=== PATIENT | female | born 1985 | race Caucasian/White ===

== ENCOUNTER 2020-02-01 13:30 | Emergency (ER) | payer MEDICAID, SELFPAY ==
--- NOTE | 2020-02-01 13:39 | ED.URI ---
HPI - URI/Sore Throat General Chief Complaint: Upper Respiratory Infection Stated Complaint: sore throat Time Seen by Provider: 02/01/20 13:39 Source: patient and RN notes reviewed Mode of arrival: ambulatory Limitations: no limitations History of Present Illness HPI Narrative: 34-year-old female presents concern for 2-week history of sore throat. She also reports rhinorrhea, nasal congestion. Reports her daughter has tested positive for strep throat. Reports family members have tested negative for COVID. She denies fever, cough, shortness of breath. Reports intermittent malaise. MD elicited complaint: sore throat Related Data Home Medications Medication Instructions Recorded Confirmed albuterol 02/01/20 Allergies Allergy/AdvReac Type Severity Reaction Status Date / Time hydroxychloroquine Allergy Mild Hives / Verified 02/01/20 13:48 Red Face Review of Systems Review of Systems: Narrative: CONSTITUTIONAL: Denies malaise, chills, sweats, or fever. EYES: Denies visual changes, redness, or discharge. ENT: Reports rhinorrhea, congestion, sore throat. Denies sinus pain, otalgia CARDIOVASCULAR: Denies chest pain, palpitations, or edema. RESPIRATORY: Denies cough or dyspnea. GASTROINTESTINAL: Denies abdominal pain, nausea, vomiting, diarrhea SKIN: Denies rash or itching. MUSCULOSKELETAL: Denies myalgia. NEUROLOGIC: Denies headache. All systems reviewed & are unremarkable except as noted in HPI and below PMFSH Social History Social History Smoking status: Never smoker Alcohol intake: never Gender identity (if verbalized by the patient): Female Comments At time of signature, agree with nursing past medical, surgical, social and family history. There is no relevant family history pertinent to the presenting complaint Exam Narrative: Exam Narrative: GENERAL: Well-appearing, well-nourished, and in no acute distress. HEAD: Normocephalic EYES: PERRLA, conjunctivae clear ENT: Nares clear, turbinates erythematous, clear discharge. Mucous membranes moist. TM pearly mobley with sharp light reflex bilaterally; no tragal tenderness. Oropharynx mildly erythematous without lesions. Tonsils not enlarged and without exudate, no drooling, no hoarseness, no trismus, uvula midline. NECK: Supple. No lymphadenopathy CHEST: Clear to auscultation, breath sounds equal. No wheezing, rhonchi, rales, or stridor. No respiratory distress, speaks in full sentences. HEART: Regular rate and rhythm. No murmur heard. SKIN: Warm, dry, no rash. NEURO: Alert and oriented x3. PSYCH: Normal mood and affect Course Course Emergency Course: Patient is aware of diagnosis, understands and agrees to treatment plan. Anticipatory guidance given. Patient agrees to follow-up as directed and is aware of reasons to seek care at the emergency department. Portions of this record may have been created with voice recognition software Vital Signs Vital signs: Vital Signs Temperature 97.4 F L 02/01/20 13:40 Pulse Rate 84 02/01/20 13:40 Respiratory Rate 18 02/01/20 13:40 Blood Pressure 128/87 02/01/20 13:40 Pulse Oximetry 99 02/01/20 13:40 Temperature 97.4 F L 02/01/20 13:40 Pulse Rate 84 02/01/20 13:40 Respiratory Rate 18 02/01/20 13:40 Blood Pressure 128/87 02/01/20 13:40 Pulse Oximetry 99 02/01/20 13:40 Reviewed. MDM - URI/Sore Throat MDM Narrative Medical decision making narrative: Differential diagnosis considered: Krishnan virus, strep pharyngitis, allergic rhinitis, upper respiratory tract infection, sinusitis, rhinosinusitis, nasopharyngitis. viral pharyngitis, otitis media, otitis externa, pneumonia, bronchitis, viral cough syndrome, viral syndrome, and influenza. Exam findings show no acute concerns or changes; patient is non-toxic appearing and is in no distress. Patient is appropriate for outpatient treatment and follow-up. Lab Data Attestation: I reviewed the patient's lab results. Labs: Strep Screen
[2020-02-01 13:40] VITALS: BP 128/87; PULSE 84; RESP 18; TEMP 36.3; O2SAT 99
== END 2020-02-01 14:12 | disposition home or self-care (01) ==
PROVIDERS: Emergency Provider Nurse Practitioner
DX: J02.9 Acute pharyngitis, unspecified (principal); J45.909 Unspecified asthma, uncomplicated
CPT/HCPCS: 87081; 87880; 99213; G0463

== ENCOUNTER 2021-11-17 15:11 | Emergency (ER) | payer OTHER, SELFPAY ==
--- NOTE | 2021-11-17 15:13 | ED.URI ---
HPI - URI/Sore Throat General Chief Complaint: Upper Respiratory Infection Stated Complaint: sore throat headache poss uti Time Seen by Provider: 11/17/21 15:13 Source: patient Mode of arrival: ambulatory Limitations: no limitations History of Present Illness HPI Narrative: Ms. mooney is a 36-year-old female patient presenting to the clinic today with complaints of sore throat, headache, and possible UTI. She reports that she began having the symptoms a few days ago. States that she recently was swimming [place] and thinks that she may have gotten a UTI from this. States that she is also having some white vaginal discharge that is not normal for her. Last intercourse was on Monday and it was a little painful. She reports that the area is somewhat burning and itching at times Related Data Home Medications Medication Instructions Recorded Confirmed albuterol sulfate 90 mcg/actuation 90 mcg inhalation DIRECTED 11/17/21 11/17/21 aerosol inhaler escitalopram oxalate 10 mg tablet 10 mg DIRECTED 11/17/21 11/17/21 omeprazole 40 mg capsule,delayed 40 mg DIRECTED 11/17/21 11/17/21 release Allergies Allergy/AdvReac Type Severity Reaction Status Date / Time hydroxychloroquine Allergy Mild Hives / Verified 02/01/20 13:48 Red Face Review of Systems Review of Systems: Pertinent positives per HPI. Patient denies any fever, chills, rash, visual changes, dizziness, cough, runny nose, shortness of breath, chest pain, palpitations, nausea, vomiting, diarrhea, constipation, abdominal pain, PMFSH Social History Social History Smoking status: Never smoker Alcohol intake: never Gender identity (if verbalized by the patient): Female Comments At the time of my signature, I reviewed and agree with the nursing past medical, surgical, social, and family history. There is no relevant family history pertinent to the patient complaint. Exam Narrative: General: Well-developed, well nourished, in no apparent distress Head: Normocephalic, atraumatic Eyes: Pupils equally round and reactive to light bilaterally, EOM intact, sclera and conjunctive clear, no discharge, lids normal Ears: TMs intact and clear, ear canals clear, no drainage, grossly hearing normal. Nose: Nares patent, no discharge, no inflammation, no sinus tenderness. Mouth: Oropharynx without lesions or masses, good dentition, MMM. Neck: Supple, trachea midline, no enlargement of anterior or posterior cervical nodes, no thyroid masses or goiter palpable. Cardio: Regular rate and rhythm, s1 and s2 normal, no murmur appreciated. Resp: Clear to auscultation bilaterally anteriorly and posteriorly, no rhonchi, rales, wheezing or rubs Abdomen: Soft, pliable, bowel sounds present in all quadrants, non-tender to palpation, no organomegly, no CVAT tenderness. General: Well-developed, well nourished, in no apparent distress Head: Normocephalic, atraumatic. Cardio: Regular rate and rhythm, s1 and s2 normal, no murmur appreciated. Resp: Clear to auscultation bilaterally, no rhonchi, rales, wheezing or rubs. Abdomen: Soft, pliable, bowel sounds present in all quadrants, non-tender to palpation, no CVAT tenderness. : Pelvic exam performed with Nelly RN at bedside. Verbal consent obtained from patient. Normal external female genitalia without lesions or masses, Urinary meatus: patent without discharge, Vagina: No lesions, masses, white discharge in pelvic vault, Cervix: surgically absent Adnexa: without palpable mass or tenderness. Course Course Emergency Course: Portions of this record may have been created with voice recognition software. Level of Care: Express Care Visit Vital Signs Vital signs: Vital signs reviewed MDM - URI/Sore Throat MDM Narrative Medical decision making narrative: At the time of visit patient is resting comfortably on the exam table. COVID, stre
[2021-11-17 15:21] VITALS: BP 116/70; PULSE 65; RESP 16; TEMP 37.5; O2SAT 97
== END 2021-11-17 16:25 | disposition home or self-care (01) ==
LOC: EXPBETH 15:15
PROVIDERS: Emergency Provider Nurse Practitioner Family
DX: B34.9 Viral infection, unspecified (principal); N89.8 Other specified noninflammatory disorders of vagina; Z20.822 Contact with and (suspected) exposure to COVID-19; J45.909 Unspecified asthma, uncomplicated; K21.9 Gastro-esophageal reflux disease without esophagitis; F41.9 Anxiety disorder, unspecified
CPT/HCPCS: 81003; 87070; 87081; 87426; 87491; 87591; 87661; 87880; 99214; C9803; G0463

== ENCOUNTER 2025-04-07 09:25 | Emergency (ER) | payer BC, SELFPAY ==
[2025-04-07 09:36] VITALS: BP 132/87; PULSE 62; RESP 16; TEMP 36.5; O2SAT 100
--- NOTE | 2025-04-07 09:52 | ED_ITS ---
HPI - URI/Sore Throat General Chief Complaint: Upper Respiratory Infection Stated Complaint: Chest Congestion/Cough Time Seen by Provider: 04/07/25 09:40 Source: patient Mode of arrival: ambulatory Limitations: no limitations History of Present Illness HPI Narrative: Yamilet is a 39-year-old female patient presenting to the clinic today with complaints of chest congestion, cough, nasal congestion, sinus pressure, and headache for approximately 10 days. She denies any chest pain does feel short of breath at times. History of asthma. Cough is nonproductive at this time. Related Data Home Medications ?Medication ?Instructions ?Recorded ?Confirmed ?Last Taken ?Type albuterol sulfate 90 mcg/actuation 90 mcg inhalation A S DIRECTED 11/17/21 11/17/21 Unknown History aerosol inhaler Allergies Allergy/AdvReac Type Severity Reaction Status Date / Time hydroxychloroquine Allergy Mild Hives / Verified 02/01/20 13:48 Red Face Review of Systems Review of Systems: Pertinent positives per HPI. Patient denies any fever, chills, rash, visual changes, dizziness, shortness of breath, chest pain, palpitations, nausea, vomiting, diarrhea, constipation, abdominal pain, or any urinary issues. PMFSH Social History Social History Smoking status: Never smoker Alcohol intake: never Gender identity (if verbalized by the patient): Female Comments At the time of my signature, I reviewed and agree with the nursing past medical, surgical, social, and family history. There is no relevant family history pertinent to the patient complaint. Exam Narrative: General: Well-developed, well nourished, in no apparent distress Head: Normocephalic, atraumatic Eyes: Pupils equally round and reactive to light bilaterally, EOM intact, sclera and conjunctive clear, no discharge, lids normal Ears: TMs intact and congested, ear canals clear, no drainage, grossly hearing normal. Nose: Nares patent, clear nasal discharge, moderate inflammation, maxillary and frontal sinus tenderness. Mouth: Oral pharynx red without lesions or masses, good dentition, MMM. Postnasal drip Neck: Supple, trachea midline, no enlargement of anterior or posterior cervical nodes, no thyroid masses or goiter palpable. Cardio: Regular rate and rhythm, s1 and s2 normal, no murmur appreciated. Resp: Clear to auscultation bilaterally, no rhonchi, rales, wheezing or rubs Course Course Level of Care: Express Care Visit Vital Signs Vital signs: Vital Signs Temperature 36.5 C 04/07/25 09:36 Pulse Rate 62 04/07/25 09:36 Respiratory Rate 16 04/07/25 09:36 Blood Pressure 132/87 04/07/25 09:36 Pulse Oximetry 100 04/07/25 09:36 Oxygen Delivery Room Air 04/07/25 09:36 Temperature 36.5 C 04/07/25 09:36 Pulse Rate 62 04/07/25 09:36 Respiratory Rate 16 04/07/25 09:36 Blood Pressure 132/87 04/07/25 09:36 Pulse Oximetry 100 04/07/25 09:36 Oxygen Delivery Room Air 04/07/25 09:36 MDM MDM Narrative Medical decision making narrative: At the time of visit patient is resting comfortably on the exam table. Patient appears to be nontoxic. Complaints of chest congestion, cough, nasal con gestion, sinus pressure, and headache for approximately 10 days. She denies any chest pain does feel short of breath at times. History of asthma. Cough is nonproductive at this time. On exam patient has bilateral TMs intact and congested, clear nasal drainage, moderate anterior turbinate inflammation, maxillary and frontal sinus tenderness, oral pharynx red with postnasal drip, heart rates regular rate and rhythm, lung sounds are clear at this time. Feels as though she is wheezing at times. Cannot find any of her albuterol inhalers. Plan: I suspect patient has sinusitis/bronchitis. Prescription for albuterol inhaler, Augmentin, prednisone was sent to the pharmacy. Supportive measures were discussed with the patient and they voiced understanding discharge instructions and agrees to treatment plan. Return precautions reviewed Differential Diagnosis Differential Diagnosis: Differential diagnostic considerations for upper respiratory infection include upper respiratory infection, croup, otitis media, sinusitis, viral infection, bronchitis, influenza, pharyngitis, strep, uvulitis. Discharge Plan Discharge Clinical Impression: Sinobronchitis Patient Disposition: Home Condition: Stable Instructions: Antibiotic Form, Acute Bronchitis (ED), Rhinosinusitis (ED) Additional Instructions: Take prescription medications only as prescribed-albuterol inhaler, prednisone, and Augmentin Increase fluids and stay well hydrated May take Tylenol or motrin as directed on bottle for pain/fever May use Flonase 1 spray in each nare daily May take OTC antihistamines such as Zyrtec or Claritin daily as directed on bottle May apply Vicks vapor rub to chest to open sinuses Sinus rinses for congestion Cepacol spray, cough drops, throat lozenges, warm tea with honey/lemon, gargle salt water to soothe throat BRAT diet for diarrhea Clear liquids x 24 hours then advance as tolerated for nausea/vomiting Go to the ED if you develop a worsening in your condition- high fever not controlled by Tylenol or Motrin, dehydration, weakness, lethargy, shortness of breath, or chest pain. Follow up with your PCP in 3-5 days if symptoms persist. Patient Language: Irish Prescriptions: New prednisone 20 mg tablet 40 mg PO DAILY 5 Days Qty: 10 0RF albuterol sulfate 90 mcg/actuation HFA aerosol inhaler 2 puff inhalation Q4-6H PRN (Reason: shortness of breath or wheezing) 30 Days Qty: 8.5 0RF amoxicillin-pot clavulanate 875-125 mg tablet 1 tablet PO Q12H 10 Days Qty: 20 0RF No Action albuterol sulfate 90 mcg/actuation HFA aerosol inhaler 90 mcg INHALATION DIRECTED ipratropium bromide 0.03 % spray,non-aerosol 2 spray NASAL TID PRN (Reason: nasal drainage) Qty: 30 0RF Rx Instructions: administer into each nostril Follow-up/Referrals: UNKNOWN,DOCTOR [Primary Care Provider] Time of Disposition: 09:53 Quality NIHSS Nursing Documentation ED NIHSS nursing documentation: reviewed/agree
--- OUTSIDE RECORDS SUMMARY | 2025-04-07 10:26 | XMS_ITS | Clinical Summary ---
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 Active fluocinolone (SYNALAR) 0.01 % Solution Apply to affected areas once a day 60 mL 2 1 Active hydrocortisone 2.5 % Cream Apply to face Once a day as needed for rash 30 g 2 1 Active Probiotic Product (PROBIOTIC PO) Take by mouth 4 times daily. Active HEMP OIL-VANILLYL BUTYL ETHER EX by Apply externally route daily. Active Multiple Vitamins-Minera ls (MULTIPLE VITAMINS/WOMENS PO) Take by mouth daily. Active Fexofenadine HCl (CURTIS PO) Take by mouth daily. Active Fluticasone Propionate (FLONASE NA) by Nasal route daily. Active DULoxetine (CYMBALTA) [address] Particles Take 30 mg by mouth daily. Take with 60mg Active DULoxetine HCl 60 MG Capsule Delayed Release Sprinkle daily. FU at [facility] 30 Capsule 1 Active Active Problems Problem Noted Date Diagnosed Date Allergic rhinitis 09/25/2020 Chronic anemia 06/19/2020 Generalized anxiety disorder 06/19/2020 Irritable bowel syndrome with constipation 06/19 Overview (06/19/2020): Try Miralax daily. Psoriasis 05/19/2020 Chronic midline low back pain without sciatica 0 05/19/2020 Overview (09/25/2020): FU at [facility] Neuralgia of left lower extremity 05/19/2020 Immunizations Immunization Administration Dates Next Due Influenza Vaccine, Quadrivalent, PF 03/08/2017 Influenza, Injectable, Quadrivalent 02/29/2016 TDAP Vaccine 04/17/2008 Family History Medical History Relation Name Comments Diabetes Father Hypertension Father Breast Cancer Maternal Grandmother Cervical Cancer Mother Heart Attack Paternal Grandfather Heart Attack Paternal Grandmother Relation Name Status Comments Father Alive Maternal Grandmother Mother Alive Paternal Grandfather Paternal Grandmother Social History Tobacco Use Types Packs/Day Years Used Date Smoking Tobacco: Never Smokeless Tobacco: Never Tobacco Cessation:Counseling Given: No Alcohol Use Standard Drinks/Week Comments Yes 0 (1 standard drink = 0.6 oz pur e alcohol) socially PHQ-2 Answer Date Recorded Total Score - Questions 1-9 0 05/2020 Sexually Active Control Partners Comments Yes Comments No Sex and Gender Information Value Date Recorded Sex Assigned at Not on file 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 Gender Identity Not on file Sexual Orientation Not on file Last Filed Vital Signs Vital Sign Reading Time Taken Comments Blood Pressure 110/62 09/25/2020 11:32 AM CDT Pulse 82 09/25/2020 11:32 AM CDT Temperature 37.4 C (99.3 F) 09/25/2020 11:32 AM CDT Respiratory Rate 12 09/09/2020 10:19 AM CDT Oxygen Saturation 97% 09/25/2020 11:32 AM CDT Inhaled Oxygen Concentration - - Weight 76.7 kg (169 lb) 09/25/2020 11:32 AM CDT Height 177.8 cm (5' 10) 09/25/2020 11:32 AM CDT Body Mass Index 24.25 09/25/2020 11:32 AM CDT Plan of Treatment Health Maintenance Due Date Last Done Comments Varicella Immunization (1 of 2 - 13+ 2-dose series) 10/09/1996 Hepatitis B Immunization (1 of 3 - 19+ 3-dose series) 10/09/2002 Influenza Immunization (#1) 12/16/202403/17, 01/15/2019, 03/08/2017, Additional history exists SARS-COV-2 Immunization ( - 2024- season) 2024 Mammogram 12/06/2025 12/06/2024 Colonoscopy 09/09/2030 09/09/2020 Colorectal Cancer Screening 09/09/2030 Respiratory Syncytial Virus (RSV) Immunization (Adult) (1 - 1-dose 75+ series) 10/09/2058 DTaP/Tdap/Td Immunization Discontinued 04/17/2008 Hepatitis C Virus (HCV) Screening Completed 07/10/2024 Discussion re Starting/Frequency of Mammograms Completed 12/06/2024 Human Papillomavirus (HPV) Immunization (No Doses Required) Completed Meningococcal Immunization (ACWY) Aged Out No longer eligible based on patient's age to complete this topic Pneumococcal Immunization Combined Aged Out No longer eligible based on patient's age to complete this topic Rotavirus Immunization Aged Out No lo nger eligible based on patient's age to complete this topic Insurance [id number]
--- OUTSIDE RECORDS SUMMARY | 2025-04-07 10:26 | XMS_ITS | Clinical Summary ---
Author Organization [facility] Address [address] [place] [address] Care Team Providers Care Salesperson Fashion Accessories Name Role Phone Dee Goetz AD-OUTDOOR STUDIES DIRECTOR Primary Care Provider [phone] Source Comments [facility],non-owned Affiliates and Associated Physician Practices is amultiple site organization consisting of ambulatory clinics and hospital sitesin [place], [place], [place] and [place]. This disclosure is being madepursuant to the Care Everywhere program and may not contain all information available regarding this patient. Last updated 18.[facility] Allergies Active Allergy Reactions Criticality Noted Date Comments Hydroxychloroquine Urticaria,Shortness of Breath High 06/23/2020 Medications * Be aware that medications may not be up to date on this document. Alwaysverify current medications with the patient. fluticasone propionate (FLONASE) 50 MCG/ACT nasal spray [place] into the nose 2 times daily as needed As Needed Active Multiple Vitamin (MULTI VITAMIN PO) Take 1 tablet by mouth once daily Active fexofenadine (CURTIS) 180 MG tablet Take by mouth once daily As needed Active PROBIOTIC PRODUCT PO Take by mouth once daily Active albuterol HFA (PROAIR HFA) 108 (90 Base) MCG/ACT inhaler Inhale 2 (two) puffs by mouth every 4 hours as needed 8.5 g 2 Active Additional Information Patient taking differently:2 puff InhalationPRN, shortness of breath, Reported on 11/20/2024 COLLAGEN PO As Needed Active fluocinonide (Lidex) 0.05 % solutionIndica tions:Psoriati c arthritis (HCC) Apply to affected area on the scalp BID. 30 day supply. 60 mL 4 3 Active Additional Information Patient taking differently: Topical 2 TIMES DAILY PRN, Apply to affected area on the scalp BID. 30 day supply. As Needed, Reported on 11/20/2024 valACYclovir (Valtrex) 500 MG tablet Take 1 (one) tablet by mouth 2 times daily as needed 3 Active tacrolimus (Protopic) 0.1 % ointment Apply to face, ears and arms two times daily as needed for perioral dermatitis and rash. 30 days supply. 60 g 3 3 Active metroNIDAZOLE (Metrogel) 0.75 % gel Apply to face twice daily. 30 days supply. 45 g 2 3 Active Bimekizumab-bk zx (Bimzelx) 320 MG/2ML SOAJIndication s:Plaque Psoriasis,Psor iatic Arthritis Inject 320 mg subcutaneously every 28 days for 112 days, THEN 320 mg Every 8 Weeks for 90 days. Inject 320 mg subcutaneously every 4 weeks for 16 weeks (5 total doses), then inject 320 mg subcutaneously every 8 weeks thereafter. Reasons: Plaque Psoriasis, Psoriasis associated with Arthritis. 10 mL 11 5 Active Active Problems Problem Noted Date Diagnosed Date Cervical dysplasia 03/31/2021 Generalized abdominal pain 03/31/2021 Fungal infection of toenail 03/31/2021 Therapeutic drug monitoring 03/31/2021 custodial current use of immunosuppressive drug 03/31/2021 Allergic rhinitis 09/25/2020 Chronic anemia 06/19/2020 Generalized anxiety disorder 06/19/2020 Neuralgia of left lower extremity 05/19/2020 Psoriatic arthritis 05/19/2020 Pelvic floor dysfunction 06/14/2019 Chronic low back pain 05/31/2019 Overview (03/31/2021): FU at [facility] Myofascial pain 05/10/2019 Overview (03/31/2021): -s/p PFPT and vaginal icing with improvement in symptoms. PLAN: -restart PFPT exercises and vaginal icing -no obvious lesions or structural causes to vaginal discomfort Excessive bleeding in premenopausal period 02/22 Overview (03/31/2021): - Longstanding history of menorrhagia; proceeding with hysterectomy for AUB and cervical dyplasia as per that problem Intrauterine device 01/04/2019 Overview (03/31/2021): - patient currently with hIUD in place since 2017 - had IUD previously that was found to be embedded on attempted removal - considering removal of this IUD 2/2 undesirable spotting - patient to follow up with primary (ROMERO Couch) for further discussion of IUD management ASCUS with positive high risk HPV cervical 12/12 Overview (03/31/2021): Pap history: No records available, but HPV (+) pap smear in the past per patient 12/05/2018 - ASCUS w/ (+) HRHPV 01/04/2019 - 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 Pathology: CIN3 with erosion and CIN2/LSIL present at the endocervical margin. -03/26/2019: LAVH/BS for CIN3. Path: no evidence of residual squamous intraepithelial lesion or dysplasia, normal uterus and tubes. -02/21/2020: Repeat cotest performed PLAN: - follow up cotest - RTC pending results of cotest Family history of breast cancer 12/05/2018 Overview (03/31/2021): -Screening mammogram with melvin ordered. History of herpes genitalis 12/05/2018 Overview (03/31/2021): -Rx Valtrex take 1 tab by mouth daily, Increase to 2 tabs BID x 3 days PRN outbreak. Other hemorrhoids 12/05/2018 Overview (03/31/2021): -Rx Anusol cream apply to anus BID PRN. Irritable bowel syndrome with constipation 04/29 Overview (03/31/2021): IBS - Irritable bowel syndrome Try Miralax daily. Pain in joint, lower leg 08/15/2010 History of miscarriage 08/15/2010 Overview (08/15/2010): sAb at 12weeks requiring D&C - no complications Hx of preeclampsia, prior , currently p regnant 08/15/2010 Overview (08/15/2010): Plan per patient was to perform 24hr urine at 25weeks gestation Asthma 08/15/2010 Overview (08/15/2010): Exercise induced; last attack 2007 Currently not requiring inhaler Scoliosis 08/15/2010 Spinal stenosis, complicating 08/16/19 11 Overview (08/15/2010): States in lower back Multiple stable previous MRIs Last saw a physician in 2007 for her back pain Resolved Problems Problem Noted Date Diagnosed Date Resolved Date Anxiety 03/31/2021 03/31/2021 Post-operative numbness 05/10/201903/17 Overview (03/31/2021): Left posterior leg numbness/tingling occurred after surgery. Persisted at 8 week post-op visit. Describes as shooting pain from vagina down L leg. Unable to tolerate gabapentin. 05/24: started cymbalta, encouraged pelvic floor PT, ordered CT and neuro referral 06/14/19: CT abdomen/pelvis normal without structural abnormality or abscess. 06/28/19: Started PT, has attended two sessions. Much improved numbness and pain. No motor deficits. 02/21/20: Lost insurance, unable to attend neurology appt. Still having numbness/tingling on posterior left thigh without motor deficits. PLAN: -restart PFPT exercises -restart cymbalta -re-referred to neurology Encounter for supervision of other normal 08/15/2010 03/31/2021 Overview (02/22/2015): History of threatened pre-term labor 08/15/2010 03/31/2021 Overview (08/15/2010): G1 HSV infection 08/15/2010 03/31/2021 Overview (08/15/2010): Last outbreak in 2009 Currently not on medication No active lesions as of 08/15/2010 Asthma 08/15/2010 03/31/2021 Overview (03/31/2021): Asthma Overview: Exercise induced; last attack 2007 Currently not requiring inhaler Immunizations Immunization Administration Dates Next Due FLU VACCINE QUAD IIV4 SPLIT 0.25 ML IM 6 INFLUENZA VACCINE 01/15/2019 INFLUENZA VACCINE, QUADR. (F LUZONE; FLULAVAL; FLUARIX; AFLURIA QUADRIVALENT; 6MO+), 0.5 ML (IIV4) 03/08/2017 TDAP (7yrs+) 04/17/2008 iNFLUENZA VACCINE, RECOM-CERON, QUADR. (FLUBLOCK QUADRIVALENT; 18Y+) (RIV4) 03/31/2021 Family History Medical History Relation Name Comments Seizures Brother 1 ADD/ADHD Brother 2 None Known Daughter 11 Depression Father Diabetes Father Hypertension Father Cancer Maternal Grandfather Diabetes Maternal Grandfather Hypertension Maternal Grandfather Stroke Maternal Grandfather Cancer Maternal Grandmother Diabetes Maternal Grandmother Cancer - Other Mother cervical Diabetes Paternal Grandfather Hypertension Paternal Grandfather Stroke Paternal Grandfather Cancer Paternal Grandmother Heart Failure Paternal Grandmother Arthritis - Rheumatoid Sister 1 Depression Sister 1 Hypertension Sister 1 Bipolar Disorder Sister 2 Asthma Son 13 Relation Name Status Comments Brother 1 (Age 31) Brother 2 Alive Daughter 11 Alive Father Alive Maternal Grandfather Maternal Grandmother Mother Alive Paternal Grandfather Paternal Grandmother Sister 1 Alive Sister 2 Alive Sister 3 Alive Son 13 Alive Social History Tobacco Use Types Packs/Day Years Used Date Smoking Tobacco: Never Smokeless Tobacco: Never Tobacco Cessation:Counseling Given: Not Answered Alcohol Use Standard Drinks/Week Comments Yes 2 (1 standard drink = 0.6 oz pur e alcohol) socially PHQ-2 Answer Date Recorded Patient Health Questionnaire-2 Score 0 07/10/2024 Comments No Sex and Gender Information Value Date Recorded Sex Assigned at Female 12/31/2020 8:36 PM CDT Legal Sex Female 11:41 AM MANAGER SEMICONDUCTOR Gender Identity Female 12/31/2020 8:36 PM CDT Sexual Orientation Not on file Last Filed Vital Signs Vital Sign Reading Time Taken Comments Blood Pressure 105/64 11/20/2024 2:39 PM CDT Pulse 76 11/20/2024 2:39 PM CDT Temperature 36.9 C (98.4 F) 07/10/2024 3:40 PM CDT Respiratory Rate 18 05/09/2022 11:09 AM MANAGER SEMICONDUCTOR Oxygen Saturation 98% 11/20/2024 2:39 PM CDT Inhaled Oxygen Concentration - - Weight 85.3 kg (188 lb) 11/20/2024 2:39 PM CDT Height 177.8 cm (5' 10) 11/20/2024 2:39 PM CDT Body Mass Index 26.98 11/20/2024 2:39 PM CDT Plan of Treatment Upcoming Encounters Date Type Department Care Team (Late st Contact Info) Description 07/16/2025 3:00 PM CDT Office Visit [facility] - Rheumatology [address] [place] [address], [place] [address] German Chavez MD [address] [place] [address] [place] [address] Health Maintenance Due Date Last Done Comments LIPID TESTING 1983 MAMMOGRAM 1983 HEPATITIS B VACCINE (1 of 3 - 19+ 3-dose series) 10/09/2002 PNEUMOCOCCAL VACCINE (1 of 2 - PCV) 10/09/2002 HPV VACCINE (1 - 3-dose SCDM series) 10/09/2010 DTAP/TDAP/TD VACCINES (2 - Td or Tdap) 04/17/2018 04/17/2008 COVID-19 VACCINE (1 - 2024- season) 2024 INFLUENZA VACCINE (#1) 2024 , 01/15/2019, 03/08/2017, Additional history exists SCREENING FOR DIABETES 07/11/2027 , 08/15/2022, 11/01/2021, Additional history exists ZOSTER VACCINE (1 of 2) 10/09/2033 HIV SCREENING Completed 04/02/2021 DEPRESSION SCREENING Completed 07/10/2024, 08/10/2022, 10/15/2021 HEPATITIS C SCREENING Completed 07/10/2024 , 08/15/2022, 02/23/2021 HIB VACCINE Aged Out No longer eligi ble based on patient's age to complete this topic MENINGOCOCCAL (Group B) VACCINE SHARED DECISION-MAKING Aged Out No longer eligible based on patient's age to complete this topic MENINGOCOCCAL GROUPS A/C/Y/W VACCINE Aged Out No longer eligible based on patient's age to complete this topic Goals Goal Patient Goal Type Associated Problems Recent Progress Patient-Stated? Author Medication Management General On track( 022 10:41 AM CDT) Barbara Palacios, RN Note: Expected end date: ongoing Interventions: Take all medications as prescribed Let your doctor know right away about any changes in your medications Make sure to request a refill of your medication at least one week prior to your last dose Procedures Procedure Name Priority Date/Time Associated Diagnosis Comments COMPREHENSIVE METABOLIC PANEL Routine 07/10/2024 5:01 PM CDT Psoriatic arthritis Psoriasis Therapeutic drug monitoring HEPATITIS C ANTIBODY Routine 07/10/2024 5:01 PM CDT Psoriatic arthritis Psoriasis Therapeutic drug monitoring HIV-1 HIV-2 ANTIBODY + HIV P24 AG PANEL Routine 04/02/2021 7:27 AM MANAGER SEMICONDUCTOR Healthcare maintenance from Last 3 Months or Most Recently Relevant to Health Maintenance Results * COMPREHENSIVE METABOLIC PANEL (07/10/2024 5:01 PM CDT) BUN 14 7 - 26 mg/dL 07/10/2024 5:50 PM [facility] Creatinine 0.78 0.56 - 0.96 mg/dL 07/10/2024 5:50 PM [facility] Sodium 139 136 - 145 mmol/L 07/10/2024 5:50 PM [facility] Potassium 3.9 3.5 - 4.5 mmol/L 07/10/2024 5:50 PM [facility] Chloride 107 98 - 107 mmol/L 07/10/2024 5:50 PM [facility] CO2 24 22 - 29 mmol/L 07/10/2024 5:50 PM [facility] Glucose 87 70 - 99 mg/dL 07/10/2024 5:50 PM [facility] Calcium 9.6 8.4 - 10.2 mg/dL 07/10/2024 5:50 PM [facility] Protein Total 7.4 6.0 - 8.3 g/dL 07/10/2024 5:50 PM [facility] Albumin 4.5 3.4 - 5.0 g/dL 07/10/2024 5:50 PM [facility] Bilirubin Total 0.5 0.2 - 1.2 mg/dL 07/10/2024 5:50 PM [facility] Alkaline Phosphatase 68 40 - 150 U/L 07/10/2024 5:50 PM [facility] ALT 24 5 - 55 U/L 07/10/2024 5:50 PM [facility] AST 21 5 - 34 U/L 07/10/2024 5:50 PM [facility] Anion Gap 8 6 - 16 07/10/2024 5:50 PM CDT [facility] BUN/Creatinine Ratio 18 7 - 23 07/10/2024 5:50 PM CDT [facility] Osmolality Calculated 288 275 - 295 mOsm/kg 07/10/2024 5:50 PM CDT [facility] Albumin/Globulin Ratio 1.6 1.1 - 2.3 07/10/2024 5:50 PM CDT [facility] eGFR by CKD-EPI >90 >=90 mL/min/1.7 3 m2 07/10/2024 5:50 PM CDT [facility] Blood BLOOD SPECIMEN / Unknown Lab Venipuncture / Unknown 07/10/2024 5:01 PM CDT 07/10/2024 5:21 PM CDT Juliet Morse MD LAB - CHEMISTRY ORDERABLES Fi nal Result Performing Organization Address [facility]/ZIP Co de Phone Number [address] [address], [place] [phone] * HEPATITIS C ANTIBODY (07/10/2024 5:01 PM CDT) Hepatitis C Antibody Non-react jaya Non-reac tive 07/10/2024 6:01 PM CDT [facility] Comment:Hepatitis C Antibody screen indicates no serologic evidence of past or current infection with Hepatitis C Virus. Patients with unexplained liver disease who are immunocompromised or suspected of having acute Hepatitis C infection may benefit from Nucleic Acid Test (TITUS) for Hepatitis C Viral RNA to confirm Hepatitis C status. Blood BLOOD SPECIMEN / Unknown Lab Venipuncture / Unknown 07/10/2024 5:01 PM CDT 07/10/2024 5:17 PM CDT Juliet Morse MD LAB - CHEMISTRY ORDERABLES Fi nal Result Performing Organization Address City/[facility]/ZIP Co de Phone Number [address] [address], [place] [phone] * HIV-1 HIV-2 ANTIBODY + HIV P24 AG PANEL (04/02/2021 7:27 AM MANAGER SEMICONDUCTOR) HIV Screen 4th Generation w Reflex NON-REACT JAYA NON-REACT JAYA [facility] Comment: HIV-1 antigen and HIV-1/HIV-2 antibodies were not detected. There is no laboratory evidence of HIV infection. PLEASE NOTE: This information has been disclosed to you from records whose confidentiality may be protected by state law. If your state requires such protection, then the state law prohibits you from making any further disclosure of the information without the specific written consent of the person to whom it pertains, or as otherwise permitted by law. A general authorization for the release of medical or other information is NOT sufficient for this purpose. For additional information please refer to http://education.Pianpian/faq/RSW191 (This link is being provided for informational/ educational purposes only.) The performance of this assay has not been clinically validated in patients less than 2 years old. Test Performed at: [facility] [id number] [place] [address] LISETTE CASAS DO,MPH Blood BLOOD SPECIMEN / Unknown 04/02/2021 7:27 AM MANAGER SEMICONDUCTOR 04/02/2021 7:28 AM MANAGER SEMICONDUCTOR Lupe Lilly STAMP COLLECTOR-OUTDOOR STUDIES DIRECTOR LAB - CHEMISTRY ORDERAB LES Final Result Performing Organization Address City/State/[facility] Co de Phone Number [facility] [address] [place] [address] from Last 3 Months or Most Recently Relevant to Health Maintenance Insurance [employer]M Care Teams Salesperson Fashion Accessories Relationship Specialty Start Date End Date Dee Goetz APRN-DOLORES [address] [place] [address] PCP - General 07/04/22
--- OUTSIDE RECORDS SUMMARY | 2025-04-07 10:26 | XMS_ITS | Clinical Summary ---
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 Name Role Phone Oj Agustin MD Primary Care Provider [phone] Allergies Active Allergy Reactions Criticality Noted Date Comments Hydroxychloroquine Hives,Shortness of breath High Medications multivitamin tabletIndicati ons:Vitamin Deficiency Prevention Take 1 tablet by mouth every morning Anti Stress Vitamin Active biotin 10,000 mcg capsuleIndicat ions:preventio n Take 1 capsule by mouth every morning Active acetaminophen (TYLENOL) 500 mg tablet Take 2 tablets (1,000 mg total) by mouth every 6 (six) hours as needed for pain 30 tablet 03/27/20 19 Active ID NOW COVID-19 Test Kit kit TEST DIRECTED 05/01/19 21 Active hydrocortisone 2.5 % cream Apply to face Once a day as needed for rash 05/19/19 21 Active triamcinolone (KENALOG) 0.1 % creamIndicatio ns:Psoriasis Apply to affected area bid prn for rash on body 80 g 11 07/11/19 21 Active fluocinonide (LIDEX) 0.05 % external solutionIndica tions:Psoriasi s Apply topically 2 (two) times a day as needed (to the scalp) 60 mL 11 07/11/19 21 Active erythromycin-b enzoyl peroxide (BENZAMYCIN) gelIndications :Acne vulgaris Apply topically every morning To face for acne 23.3 g [address] (CYMBALTA) 30 mg capsule Take 1 capsule (30 mg total) by mouth daily Along with 1 60mg capsule for 90mg total daily. 30 capsule 5 09/04/[address] (CYMBALTA) 60 mg capsule Take 1 capsule (60 mg total) by mouth daily Along with one 30mg capsule for 90mg total daily 30 capsule 5 03/04/20 21 Active Skyrizi 150 mg/mL syringe 08/16/19 23 Active omeprazole (PriLOSEC) 40 mg capsule Take 1 tablet by mouth daily 02/23/20 22 Active collagen, bovine, 100 % powder Take by mouth Active spironolactone (ALDACTONE) 25 mg tablet Take 1 tablet (25 mg total) by mouth daily Active valACYclovir (VALTREX) 500 mg tablet TAKE 1 TABLET (500 MG TOTAL) BY MOUTH DAILY. 30 tablet 11 03/19/20 25 026 Active valACYclovir (VALTREX) 500 mg tablet Take 1 tablet (500 mg total) by mouth daily 30 tablet 11/09/19 24 025 Discontinued Active Problems Problem Noted Date Diagnosed Date Focal non-cyclical breast pain 01/08/2025 Overview (01/08/2025): 11/2024: Screening mammogram: bi-rads cat 1, heterogeneously dense -01/08/45: Pt report focal breast pain right breast at 10-11:00 and at 6:00 position, associated increased breast dense/lump although difficult to assess d/t dense breast tissue. -Right breast US and diagnostic mammogram ordered Chronic anemia 06/19/2020 Generalized anxiety disorder 06/19/2020 Psoriasis 05/19/2020 Psoriatic arthritis 05/19/2020 Pelvic floor dysfunction 06/14/2019 Overview (10/26/2022): -Referral to PFPT Chronic low back pain 05/31/2019 Overview (11/09/2023): FU at [facility] FU at [facility] Infection of superficial inc isional surgical site after procedure 05/10/2019 Overview (05/24/2019): Noted at 6 wks post-op from a LAVH/BS with likely cuff cellulitis. 05/24/19: s/p 7d Augmentin BID. cellulitis resolved, cuff well-healing Myofascial pain 05/10/2019 Overview (02/21/2020): -s/p PFPT and vaginal icing with improvement in symptoms. PLAN: -restart PFPT exercises and vaginal icing -no obvious lesions or structural causes to vaginal discomfort History of cervical dysplasia 12/12/2018 Overview (01/10/2025): Pap history: No records available, but HPV [...] uterus and tubes. -02/21/2020: Repeat cotest performed - NILM/HPV- -02/19/21 - Neg pap/Neg HPV 10/26/22: Pap collected, 2/2 recent use of biologic agent - NILM/+HPV 11/09/23: Pap NILM, Neg HPV 12/2024: Repeat pap collected given high risk medication use -01/10/25 / + HPV (Non 16/18) Well woman exam 12/05/2018 Overview (01/23/2025): Recommended screenings and preventive care discussed: Reviewed general breast health: Self Breast Exams Mammogram: 11/2024: Bi-rads cat 1 Pap w/ HPV: 01/08/25 ASCUS/ + HPV (Non 16/18) (hx of CIN3 s/p hysterectomy) Discussed with Dr Machuca, [employer] ONC Fellow - Repeat pap in 1 year Gardasil Vaccine : > 26 yo NG/CT/Trich: Ordered HIV/RPR: Ordered Contraception: N/A Primary labs per PCP. Diet and exercise discussed. Calcium and vitamin D intake discussed. Osteoporosis with DEXA Scan: N/A Colonoscopy: N/A Reviewed symptoms of perimenopause Follow up in 1 year of sooner if needed. Family history of breast cancer 12/05/2018 Overview (01/08/2025): Family History Problem Relation Age of Onset Breast cancer Mother 35 S/P lumectomy no chemo Ovarian cancer Mother Diabetes Father Rheum arthritis Sister Breast cancer Maternal Grandmother Breast cancer Paternal Grandmother Diabetes Paternal Grandmother Myriad: Ordered 01/08/25 - Await results for further recommendations - Annual screening mammogram UTD, recommend consideration of breast MRI every 1- 2 years given dense breast tissue RESULTS: - Breast Cancer RiskScore: * (General population risk = 12.5%) - Ashlie Breast Cancer Risk Calculation: * (recommend medical management if > 20%) 5-Year Breast Cancer Risk: 0.6% - Recommendation: Pelvic pain/Dyspareunia 12/05/2018 Overview (02/22/2019): -Treated for possible endometritis previously with doxycycline 100 mg take 1 tablet BID x 7 days. - Given ongoing pelvic pain particularly on right side even s/p removal of IUD, will order [employer] ultrasound for further assessment. If endometrioma is present on US, would need further discussion of removal as this was not included on her consent form today. History of herpes genitalis 12/05/2018 Overview (11/09/2023): -Discussed treatment options of daily suppression vs PRN. Given report of frequent outbreaks, shared decision making to switch to chronic suppression. -Rx Valtrex 500mg daily -Increase to 2 tabs BID x 3 days PRN outbreak Other hemorrhoids 12/05/2018 Overview (12/05/2018): -Rx Anusol cream apply to anus BID PRN. Irritable bowel syndrome with constipation 04/29 Overview (11/09/2023): IBS - Irritable bowel syndrome IBS - Irritable bowel syndrome Try Miralax daily. Asthma 08/15/2010 Overview (11/09/2023): Asthma Overview: Exercise induced; last attack 2007 Currently not requiring inhaler Exercise induced; last attack 2007 Currently not requiring inhaler Scoliosis 08/15/2010 Resolved Problems Problem Noted Date Diagnosed Date Resolved Date Neuralgia of left lower extremity 05/19/2020 11/09/2023 Post-operative numbness 05/10/2019 072 08/2023 Overview (02/21/2020): Left posterior leg numbness/tingling occurred after surgery. [...] PFPT exercises -restart cymbalta -re-referred to neurology Excessive bleeding in premenopausal period 02/22/2019 11/09/2023 Overview (02/22/2019): - Longstanding history of menorrhagia; proceeding with hysterectomy for AUB and cervical dyplasia as per that problem Intrauterine device 01/04/2019 11/09/19 24 Overview (01/04/2019): - patient currently with hIUD in place since 2016 - had IUD previously that was found to be embedded on attempted removal - considering removal of this IUD /2 undesirable spotting - patient to follow up with primary (ROMERO Couch) for further discussion of IUD management Encounters Date Type Department Care Team Description 01/24/2025 Telephone [facility] [address] [place] [address] [place] [phone] Fiordaliza Tijerina, ROMERO 01/24/2025 Telephone [facility] [address] [place] [phone] Osvaldo Vieyra 01/24/2025 Telephone [facility] [address] [place] [phone] Adrianna Couch NP 01/23/2025 Telephone [facility] [address] [place] [phone] Osvaldo Vieyra 01/23/2025 Telephone [facility] [address] [place] [phone] Adrianna Couch NP 01/15/2025 Results Follow-Up [facility] [address] [place] [phone] Leonard Grimm NP N. gonorrhoeae/C. trachomatis Amplification Vaginal, Trichomonas vaginalis PCR Vaginal, RPR Blood, Additional followed-up results: 2 01/08/2025 11:14 AM CDT - 01/08/2025 11:59 PM CDT Hospital Encounter [facility] [address] [phone] Well woman exam Discharge Disposition: Discharge to home or self care 01/08/2025 10:15 AM CDT Office Visit [facility] Clinic [address] [place] [phone] Soraida Logan NP Well woman exam (Primary Dx); Family history of breast cancer; Focal non-cyclical breast pain from Last 3 Months Immunizations Immunization Administration Dates Next Due Influenza, Unspecified 01/15/2019 Surgical History Surgery Date Site/Laterality Comments LAPAROSCOPY Unknown etiology. DILATION AND CURETTAGE OF UTERUS 04/17/2010 - 04/16/2011 after SAB HYSTERECTOMY 03/26/2019 LAVH/BS for CIN3 Medical History Medical History Date Comments Genital herpes History of pre-eclampsia Arthritis Psoriasis PONV (postoperative nausea and vomiting) nausea without vomiting GI problem Joint pain Pelvic floor dysfunction 06/14/2019 Family History Medical History Relation Name Comments Diabetes Father Breast cancer Maternal Grandmother Breast cancer Mother S/P lumectomy no chemo Ovarian cancer Mother Breast cancer Paternal Grandmother Diabetes Paternal Grandmother Rheum arthritis Sister Relation Name Status Comments Father Alive Maternal Grandmother Mother Alive Paternal Grandmother Sister Alive Social History Tobacco Use Types Packs/Day Years Used Date Smoking Tobacco: Never Smokeless Tobacco: Never Tobacco Cessation:Counseling Given: No Alcohol Use Standard Drinks/Week Comments Yes 0 (1 standard drink = 0.6 oz pur e alcohol) occasional Social Connection and Isolation Panel Answer Date Recorded In a typical week, how many times do you talk on the phone with family, friends, or neighbors? More than three times a week 11/09/2023 How often do you get togethe r with friends or relatives? More than three times a week 11/09/2023 Attends [employer] Services Not on file 11/08 Active Member of Clubs or Organizations Not on f ile 11/09/2023 Attends Club or Organization Meetings Not on mindy e 11/09/2023 Marital Status Not on file 11/09/2023 Overall Financial Resource Strain (CARDIA) Answe r Date Recorded How hard is it for you to pa y for the very basics like food, housing, medical care, and heating? Not hard at all 11/09/2023 [facility] [place] [facility] Occup[facility] ional [facility] - Occupational Stress Questionnaire Answer Date Recorded Do you feel stress - tense, restless, nervous, or anxious, or unable to sleep at night because your mind is troubled all the time - these days? Very much 11/09/2023 PRAPARE - Transportation Answer Date Re corded In the past 12 months, has l ack of transportation kept you from medical appointments or from getting medications? No 10/16 In the past 12 months, has l ack of transportation kept you from meetings, work, or from getting things needed for daily living? No 11/09/2023 Housing Stability Vital Sign Answer Dirk e Recorded In the last 12 months, was t here a time when you were not able to pay the mortgage or rent on time? No 10/26/2022 Number of Places Lived in the Last Year Not on f ile 10/26/2022 In the last 12 months, was t here a time when you did not have a steady place to sleep or slept in a usp (including now)? No 10/26/2022 Housing Stability Vital Sign Answer Dirk e Recorded In the last 12 months, was t here a time when you were not able to pay the mortgage or rent on time? No 11/09/2023 Number of Times Moved in the Last Year Not on fi le 11/09/2023 At any time in the past 12 m [facility], were you homeless or living in a usp (including now)? No 11/09/2023 Humiliation, Afraid, Rape, and Kick questionnair e Answer Date Recorded Within the last year, have y ou been afraid of your partner or ex-partner? No 01/08/2025 Within the last year, have y ou been humiliated or emotionally abused in other ways by your partner or ex-partner? No Within the last year, have y ou been kicked, hit, slapped, or otherwise physically hurt by your partner or ex-partner? No 01/08/2025 Within the last year, have y ou been raped or forced to have any kind of sexual activity by your partner or ex-partner? No 01/08/2025 Social Connection and Isolation Panel Answer Date Recorded In a typical week, how many times do you talk on the phone with family, friends, or neighbors? Three times a week 01/08/2025 How often do you get togethe r with friends or relatives? Three times a week 01/08/2025 Attends [employer] Services Not on file 01/08 Active Member of Clubs or Organizations Not on f ile 01/08/2025 Attends Club or Organization Meetings Not on mindy e 01/08/2025 Marital Status Not on file 01/08/2025 AUDIT-C Answer Date Recorded Q1: How often do you have a drink containing alc ohol? Monthly or less 01/08/2025 Q2: How many drinks containi ng alcohol do you have on a typical day when you are drinking? 1 or 2 01/08/2025 Frequency of Binge Drinking Not on file 12/17 Overall Financial Resource Strain (CARDIA) Answe r Date Recorded How hard is it for you to pa y for the very basics like food, housing, medical care, and heating? Not very hard 01/08/2025 Exercise Vital Sign Answer Date Recorde d On average, how many days pe r week do you engage in moderate to strenuous exercise (like a brisk walk)? 3 days 01/08/2025 On average, how many minutes do you engage in exercise at this level? 50 min 01/08/2025 Hunger Vital Sign Answer Date Recorded Within the past 12 months, y ou worried that your food would run out before you got the money to buy more. Never true 01/09/20 25 Within the past 12 months, t he food you bought just didn't last and you didn't have money to get more. Never true 01/08/2025 PRAPARE - Transportation Answer Date Re corded In the past 12 months, has l ack of transportation kept you from medical appointments or from getting medications? No 12/17 In the past 12 months, has l ack of transportation kept you from meetings, work, or from getting things needed for daily living? 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 Gender Identity Female 12/04/2024 10:50 AM CDT Sexual Orientation Not on file Occupation Industry Job Start Date Job End Date [employer] Not on file Not on file Not on file Obstetrics History Para Term AB IAB SAB Ectopic Multiple Livin g Live Births 3 2 2 1 2 2 Date Outcome GA Total Labor Labor/2nd/3rd Weight Sex Type Anes PTL Eladia A1 A5 Name Clin Term Vag-Spo nt Term Vag-Spo nt AB Last Filed Vital Signs Vital Sign Reading Time Taken Comments Blood Pressure 126/78 01/08/2025 10:22 AM CDT Pulse 61 01/08/2025 10:22 AM CDT Temperature 36.6 C (97.9 F) 11/09/2023 2:12 PM CDT Respiratory Rate 16 01/08/2025 10:22 AM CDT Oxygen Saturation 95% 01/08/2025 10:22 AM CDT Inhaled Oxygen Concentration - - Weight 83.5 kg (184 lb) 01/08/2025 10:22 AM CDT Height 177.8 cm (5' 10) 12/06/2024 3:41 PM CDT Body Mass Index 26.4 12/06/2024 3:41 PM CDT Plan of Treatment Health Maintenance Due Date Last Done Comments Depression Screening 1985 Hepatitis C Screening 1985 Varicella Vaccines (1 of 2 - 13+ 2-dose series) 10/09/1996 Hepatitis B Screening 10/09/2001 Pneumococcal vaccine <65 (1 of 2 - PCV) 10/09/2002 HPV Vaccines (1 - 3-dose SCD M series) 10/09/2010 DTaP/Tdap/Td Vaccine (2 - Td or Tdap) 04/17/2018 04/17/2008 Regular Well Visit/Exam 18-64 11/08/2024, 10/26/2022, 12/05/2018 Influenza Vaccine (#1) 2024 , 01/15/2019, 03/08/2017, Additional history exists Breast Cancer Screening-Mammogram 12/06/2025 025 Cervical Cancer Screening Discontinued 2024, 01/08/2025, 11/09/2023, Additional history exists Procedures Procedure Name Priority Date/Time Associated Diagnosis Comments HIV 1/2 ANTIBODY PLUS P24 ANTIGEN Routine 01/08/2025 11:27 AM CDT Well woman exam RPR Routine 01/08/2025 11:27 AM CDT Well woman exam [employer] GERMLINE HEREDITARY CANCER TESTING Routine 01/08/2025 11:23 AM CDT Family history of breast cancer TRICHOMONAS VAGINALIS PCR Routine 01/08/2025 11:18 AM CDT Well woman exam N. GONORRHOEAE/C. TRACHOMATIS AMPLIFICATION Routine 01/08/2025 11:18 AM CDT Well woman exam PAP AND HIGH RISK HPV, REFLEX TO GENOTYPING Routine 01/08/2025 11:14 AM CDT Well woman exam HIGH RISK HPV DNA DETECTION WITH GENOTYPING Routine 01/08/2025 11:14 AM CDT Well woman exam SCREENING MAMMOGRAM BILATERAL W MOHAMUD Schedule Routine, Read Routine (OP Routine) 12/06/2024 3:48 PM CDT Screening mammogram, encounter for from Last 3 Months or Most Recently Relevant to Health Maintenance Results * HIV 1/2 Antibody plus p24 Antigen Blood (01/08/2025 11:27 AM CDT) HIV 1/2 ab + p24 ag Nonreactive Nonreactive Comment:Nonreactive for HIV- 1 antigen and HIV-1/HIV-2 antibodies. No laboratory evidence of HIV infection. If acute HIV infection is suspected, consider testing for HIV-1 RNA. Current interpretive data was last revised on 21. Blood 01/08/2025 11:2 7 AM CDT 01/08/2025 12:41 PM CDT Soraida Logan NP LAB MICROBIOLOGY - GENERAL O RDERABLES Final Result Performing Organization Address City/[facility] Co de Phone Number [facility] Department [place] [employer] [place] [address] * RPR Blood (01/08/2025 11:27 AM CDT) RPR Nonreactive Nonreactive Blood 01/08/2025 11:2 7 AM CDT 01/08/2025 12:41 PM CDT Soraida Logan NP LAB MICROBIOLOGY - GENERAL O RDERABLES Final Result Performing Organization Address City/[facility]/ZIP Co de Phone Number [facility] Department [place] [address] * [facility] BRACAnalysis and MyRisk / Note 2 Tests (M0001) (01/08/2025 11:23 AM CDT) Pathologist [facility] Bracanalysis and Myrisk / Note 2 Tests No Significant Finding 01/14/2025 2:59 PM CDT [facility] Comment: BRACANALYSIS AND MYRISK / NOTE 2 TESTS See PDF for complete results. No Significant Genetic or Clinical History Finding NO VARIANT(S) OF UNCERTAIN SIGNIFICANCE (VUS) IDENTIFIED Blood specimen (specimen) Venous blood specimen / Unknown 01/08/2025 11:23 AM CDT 01/09/2025 5:03 PM CDT Soraida Logan NP LAB GENETIC TESTING Final Re sult [facility] [address] [place] [address] [facility] [address] [place] [address] * N. gonorrhoeae/C. trachomatis Amplification Vaginal (01/08/2025 11:18 AM CDT) [facility] C. trachomatis Not Detected [facility] N. gonorrhoeae Not Detected [facility] Comment: Interpretive Data This assay detects Chlamydia trachomatis and Neisseria gonorrhoeae by nucleic acid amplification testing (NAAT). This assay has been cleared by the [place] Food and Drug administration. The performance characteristics of this test have been verified by the [facility] Molecular Infectious Disease laboratory. The performance characteristics of this test have not been evaluated in individuals less than 14 years of age. Current Interpretive Data was last revised on 2023. Vaginal (None) 01/08/2025 11 :18 AM CDT 01/08/2025 2:56 PM CDT Soraida Logan NP LAB MICROBIOLOGY - GENERAL O RDERABLES Final Result [facility] [address] [facility] Department [place] [address] [facility] * Trichomonas vaginalis PCR Vaginal (01/08/2025 11:18 AM CDT) [facility] Trichomonas DNA Not Detected [facility] Comment: Interpretive Data This assay detects Trichomonas vaginalis by nucleic acid amplification testing (NAAT). This assay has been cleared by the [place] Food and Drug administration. The performance characteristics of this test have been verified by the [facility] Molecular Infectious Disease laboratory. The performance of this test has not been evaluated in individuals less than 18 years of age. Current Interpretive Data was last revised on 2023. Vaginal 01/08/2025 11:1 8 AM CDT 01/08/2025 2:56 PM CDT Soraida Logan NP LAB MICROBIOLOGY - GENERAL O RDERABLES Final Result [facility] [address] [facility] Department [place] [address] [facility] * (ABNORMAL) High Risk HPV DNA Detection with Genotyping (Molecular component) (01/08/2025 11:14 AM CDT) [facility] HPV HR 16 Not Detected Not Detected [facility] HPV HR 18 Not Detected Not Detected [facility] HPV HR Non 16/18 Detected(A) Not Detected [facility] Comment: Interpretive Data Nucleic acid amplification for detection of high-risk Human Papilloma virus (HPV) is performed by the Rachelle Damari 6800 HPV test. This assay specifically detects HPV-16 and HPV-18 genotypes. The following HPV genotypes are detected as high-risk HPV: HPV-31, 33, 35, ,39, 45, 51, 52, 56, 58, 59, 66, and 68. This assay has been approved by the [place] Food and Drug Administration for detection of HPV in cervical specimens collected by a physician using an endocervical brush/spatula or cervical broom and placed in the ThinPrep Pap Test PreservCyt collection containers. The performance characteristics of this test have been verified by the [facility] Molecular Infectious Disease laboratory. Correlate with separately reported cytology results, as applicable. Interpretive data last revised 22 Endocervical 01/08/2025 11:1 4 AM CDT 01/09/2025 11:21 AM CDT Narrative [facility] - 01/10/2025 8:58 AM CDT Clinical history and diagnosis->WWE Number of vials->1 Testing type->Screening Last menstrual period (date if known)->n/a Menstrual status->Post hysterectomy, total us Soraida Logan NP LAB BODY FLUIDS AND STOOLS O RDERABLES Final Result [facility] Department [place] [address] [facility] * (ABNORMAL) Pap and High Risk HPV and Genotyping (Cytology Component) (01/08/2025 11:14 AM CDT) Thin prep (Pap test) 01/08/2025 11:14 AM CDT 01/08/2025 2:29 PM CDT Narrative PATHOLOGY [facility] - 01/22/2025 2:54 PM CDT EPIC results best viewed via link to PDF [facility] [place] [address] Note to Patients: This report may contain a detailed description of human tissue sent by a health care provider to the laboratory for pathologic evaluation. The content of this report is essential for diagnosis and may provide important critical findings. This information may be unfamiliar to patients to review without a medical professional present. It is advised that the patient review this report in the presence of a health care provider who can answer questions and explain the details. CYTOPATHOLOGY REPORT FINAL Patient Name: GEORGE CRAVEN Gender: Maciej : 1985 (Age: 39) Address: [address] [place] [address] [facility] #: [id number] Service: Gynecology Location: Patient Type: [facility] SPECIMEN Taken: 01/08/2025 Received: 01/08/2025 Accessioned: 01/08/2025 Reported: 01/22/2025 Physician(s): MONTSERRAT Sheets FINAL INTERPRETATION SOURCE OF SPECIMEN Liquid based Thin Prep pap with HPV: STATEMENT OF ADEQUACY - Satisfactory for evaluation - Endocervical cells/transformation zone sample absent GENERAL CATEGORIZATION: - Epithelial cell abnormality INTERPRETATION: - Atypical squamous cells of undetermined significance Comments (Abnormal-Positive for High Risk HPV) HPV HR 16- NOT DETECTED HPV HR 18- NOT DETECTED HPV HR NON 16/18- DETECTED Interpretive Data Nucleic acid amplification for detection of high-risk Human Papilloma virus (HPV) is performed by the Rachelle Damari 6800 HPV test. This assay specifically detects HPV-16 and HPV-18 genotypes. The following HPV genotypes are detected as high-risk HPV: HPV-31, 33, 35, 39, 45, 51, 52, 56, 58, 59, 66, and 68. This assay has been approved by the [place] Food and Drug Administration for detection of HPV in cervical specimens collected by a physician using an endocervical brush/spatula or cervical broom and placed in the ThinPrep Pap Test PreservCyt collection containers. The performance characteristics of this test have been verified by the [facility] Molecular Infectious Disease laboratory. Correlate with reported cytology results, as applicable. Interpretive data last revised 22 [facility]/01/22/2025 09:53 By this signature, I attest that the above diagnosis is based upon my personal examination of the slides(and/or other material indicated in the diagnosis). Giancarlo Ortiz M.D. Report Electronically Reviewed and Signed Out By Giancarlo Ortiz M.D. 01/22/2025 14:54:50 Danielito Templeton MS, CT(ASCP)PA Cervicovaginal Cytology (Pap Test) Disclaimer: The Pap test is a screening test used to detect cervical cancer and its precursors; it is not a diagnostic procedure. False negative and false positive results do occur. Pap test results should be interpreted in the context of pertinent clinical information and biopsy results as indicated. CMS Clinical Laboratory Improvement Amendments (CLIA) mandate that cytologic and histologic results be correlated for laboratory software quality assurance specialist & improvement standards. FOR ALL HIGH-GRADE CASES we request submission of follow-up histological material and/or reports that have not been previously provided so that we may fulfill said required standards. Gross Description A. Liquid based Thin Prep pap with HPV: Cervical/vaginal - Screening ThinPrep Clinical Diagnosis and History Last Menstrual Period: n/a Menstrual History: Total Hysterectomy: Post The patient is a year old 39 with well woman exam. Report Images and scanned documents, if included only viewable in PDF version The performance characteristics of some immunohistochemical stains, in-situ hybridization and fluorescence in-situ hybridization tests and immunophenotyping by flow cytometry cited in this report (if any) were determined by the Surgical Pathology Department at [facility] as part of an ongoing quality assurance monitor chassis program and in compliance with federally mandated regulations drawn from the Clinical Laboratory Improvement Act of 1988 (CLIA '88). Some of these tests rely on the use of analyte specific reagents and are subject to specific labeling requirements by the US Food and Drug Administration. Such diagnostic tests may only be performed in a facility that is certified by the Department of Health and Human Services as a high complexity laboratory under CLIA '88. The FDA has determined that such clearance or approval is not necessary. This test is used for clinical purposes. It should not be regarded as investigational or for research. Nevertheless, federal rules concerning the medical use of analyte specific reagents require that the following disclaimer be attached to the report: This test was developed and its performance characteristics determined by the Surgical Pathology Department of [facility]. It has not been cleared or approved by the U. S. Food and Drug Administration. Soraida Logan NP LAB CYTOLOGY ORDERABLES Fang reeder Result PATHOLOGY [facility] 3rd Floor [place], [place] [phone] * Screening Mammogram Bilateral W Mohamud (12/06/2024 3:48 PM CDT) Anatomical Region Laterality Modality Breast Bilateral Mammography Impressions 12/10/2024 2:33 PM CDT Bilateral No evidence of malignancy in either breast. OVERALL BI-RADS FINAL ASSESSMENT: 1 - Negative RECOMMENDATION: Recommend bilateral annual screening mammography. If supplemental screening is desired for heterogeneously dense breast tissue, consider breast MRI every 1-2 years. If breast MRI cannot be performed, contrast-enhanced mammography is an alternative. Narrative 12/10/2024 2:33 PM CDT EXAMINATION: Screening Mammogram Bilateral W Mohamud: 12/06/2024 COMPARISON: Relevant prior studies available at the time of interpretation were reviewed, including the most recent mammogram on: 09/23/2016. TECHNIQUE: Mammography was performed with 2D and 3D digital breast tomosynthesis (DBT) images. CAD was utilized. BREAST PARENCHYMAL COMPOSITION: The breasts are heterogeneously dense, which may obscure small masses. FINDINGS: Bilateral There is no suspicious mass, calcification, or architectural distortion in either breast. us Self Screening Mammogram IMG MAMMO PROCEDURES Fi nal Result from Last 3 Months or Most Recently Relevant to Health Maintenance [place] [address] [place] [address] [employer] Address: [facility] [id number] [place] [address] [facility] BLUE [facility] CHOICE OOS [facility] IDPA BL CHOICE PRF PPO [place] Advance Directives For more information, please contact: [phone] * Full Code (Latest Code Status on File) Date Activated Date Inactivated Comments 03/26/2019 6:48 PM 03/27/2019 3:49 PM Care Teams Flexographic Press Set Up Operator Relationship Specialty Start Date End Date Oj Agustin MD PCP - General Internal Medicine 07/10/20
--- OUTSIDE RECORDS SUMMARY | 2025-04-07 10:26 | XMS_ITS | Data Portability ---
Author Organization [facility] Address [address] [place] [address] Assessment No assessment recorded. Plan of Treatment Reminders Order Date Submit Date Provider Last Modified By Organization Details Last Modified Time Details Appointments None recorded. Lab vaginal pathogens panel, ROBYN+probe, vaginal fluid 2023 024 [facility], [address] [facility] [facility] [address], [place], [address], 4 07:13:25 chlamydia trachomatis + neisseria gonorrhoeae rRNA panel, ROBYN+probe, nasopharynx 2023 024 [facility], [address] [facility], [facility] [address], [place], [address], 4 06:18:43 RPR (rapid plasma reagin), serum 2023 024 [facility], [address] [facility], [facility] [address], [place], [address], 4 06:18:44 HIV 1 + 2, meaningful use set 2023 024 [facility], [address] [facility], [facility] [address], [place], [address], 4 06:18:45 HBsAg (hepatitis B surface Ag), EIA, serum 2023 024 [facility], [address] [facility], [facility] [address], [place], [address], 4 06:18:44 Hepatitis C IgG Ab, qual, serum 2023 024 [facility], [address] [place] [address] [address], [place], [address], 4 06:18:42 Referral None recorded. Procedures None recorded. Surgeries None recorded. Imaging None recorded. Medication Orders None recorded. Patient TargetsNo targets recorded. Patient Instructions Encounter Date Encounter Id Patient Instructions Last Modified By Organization Details Last Modified Time 10/17/2023 [id number] safer sex: care instructions [email or web address] Not available 10/17/2023 15:42:39 Plan of care has been discussed with patient including expected therapeutic benefits and potential side effects of prescribed medication and treatments. Patient verbalizes understanding and is in agreement with the plan of care. Patient was instructed to keep all scheduled appointments and contact the clinic for any additional problems. [email or web address] Not available 11/19/2023 17:24:11 Reason for Referral None Reported. Results Created Date Observation Date Name Description Value Unit Range Abnormal Flag Note LastModifiedBy Organization Detail LastModifiedTime 10/17/19 24 10/18/2023 INTER PRETA TION: interpretati on: Commen t Not infec zion with HCV unles s early or acute infec tion is suspe cted (whic h may be delay ed in an immun ocomp romis ed indiv idual ), or other evide nce exist s to indic ate HCV infec tion. Not Available [facility] ([facility]) [address] [facility], [place], [address], 10/19/2023 06:18:42 10/17/19 24 10/18/2023 HCV ANTIB OSITO RFX TO QUANT PCR HCV Ab NON REACTI VE nonrea ctive Not Available [facility] ([facility]) [address] [facility], [place], [address], 10/19/2023 06:18:42 10/17/19 24 10/18/2023 CT/GC ROBYN, PHARY NGEAL C. trachomatis, ROBYN, pharyn NEGATI VE negati ve Not Available [facility] ([facility]) [address] [facility], [place], [address], 10/19/2023 06:18:43 10/17/19 24 10/18/2023 CT/GC ROBYN, PHARY NGEAL N. gonorrhoeae, ROBYN, pharyn NEGATI VE negati ve Not Available [facility] ([facility]) [address] [facility], [place], [address], 10/19/2023 06:18:43 10/17/19 24 10/18/2023 HBSAG SCREE N HBsAg screen NEGATI VE negati ve Not Available [facility] ([facility]) [address] [facility], [place], [address], 10/19/2023 06:18:43 10/17/19 24 10/18/2023 RPR, RFX QN RPR/C ONFIR M TP RPR NON REACTI VE nonrea ctive Not Available [facility] ([facility]) [address] [facility], [place], [address], 10/19/2023 06:18:44 10/17/19 24 10/18/2023 HIV AB/P2 4 AG WITH REFLE X HIV Ab/P24 Ag screen NON REACTI VE nonrea ctive HIV Negat aldo HIV-1 /HIV- 2 antib odies and HIV-1 p24 antig en were NOT detec zion. There is no labor atory evide nce of HIV infec tion. Not Available [facility] ([facility]) [address] [facility], [place], [address], 10/19/2023 06:18:45 10/17/19 24 10/18/2023 NUSWA B VAGIN ITIS PLUS (VG+) atopobium vaginae MODERA TE - 1 score Not Available [facility] ([facility]) [address] [facility], [place], [address], 10/19/2023 07:13:25 10/17/19 24 10/18/2023 NUSWA B VAGIN ITIS PLUS (VG+) bvab 2 MODERA TE - 1 score Not Available [facility] ([facility]) [address] [facility], [place], [address], 10/19/2023 07:13:25 10/17/19 24 10/18/2023 NUSWA B VAGIN ITIS PLUS (VG+) megasphaera 1 HIGH - 2 score abnormal Calcu late total score by leah g the 3 indiv idual bacte rial vagin osis (BV) marke r score s toget her. Total score is inter prete d as follo ws: Total score 0-1: Indic ates the absen ce of BV. Total score 2: Indet ermin ate for BV. Addit ional clini deedee data shoul d be evalu ated to estab angie a diagn osis. Total score 3-6: Indic ates the prese nce of BV. Not Available [facility] ([facility]) [address] [facility], [place], [address], 10/19/2023 07:13:25 10/17/19 24 10/18/2023 NUA B VAGIN ITIS PLUS (VG+) mao albicans, ROBYN NEGATI VE negati ve Not Available [facility] ([facility]) [address] [place], [address], 10/19/2023 07:13:25 10/17/19 24 10/18/2023 NUA B VAGIN ITIS PLUS (VG+) mao glabrata, ROBYN NEGATI VE negati ve Not Available [facility] ([facility]) [address] [place], [address], 10/19/2023 07:13:25 10/17/19 24 10/19/2023 NUA B VAGIN ITIS PLUS (VG+) trich vag by ROBYN NEGATI VE negati ve Not Available [facility] ([facility]) [address] [place], [address], 10/19/2023 07:13:25 10/17/19 24 10/19/2023 NUSWA B VAGIN ITIS PLUS (VG+) chlamydia trachomatis, ROBYN NEGATI VE negati ve Not Available [facility] ([facility]) [address] [facility], [place], [address], 10/19/2023 07:13:25 10/17/19 24 10/19/2023 NUSWA B VAGIN ITIS PLUS (VG+) neisseria gonorrhoeae, ROBYN NEGATI VE negati ve Not Available [facility] ([facility]) [address] [facility], [place], [address], 10/19/2023 07:13:25 07/11/19 25 07/10/2024 HBsAg (hepa titis B surfa ce Ag), serum HBsAg (hepatitis B surface Ag), EIA, serum Non-re active text: non-re active Not Available Not Available 03/05/2025 12:42:56 07/11/19 25 07/10/2024 HBsAg (hepa titis B surfa ce Ag), serum lab interpretati on Normal Not Available Not Available 02/15 12:42:56 07/11/19 25 07/10/2024 hepat itis B virus core Ab, quali tativ e, serum hbcab (hepatitis B core Ab), IgG+IgM, serum Non-re active text: non-re active Not Available Not Available 03/05/2025 12:42:56 07/11/19 25 07/10/2024 hepat itis B virus core Ab, quali tativ e, serum lab interpretati on Normal Not Available Not Available 02/15 12:42:56 07/11/19 25 07/10/2024 eryth rocyt e sedim entat ion rate by weste rgren metho d erythrocyte sedimentatio n rate by westergren method 4 text: 0 - 20 mm/HR Not Available Not Available 03/05/2025 12:42:56 07/11/19 25 07/10/2024 eryth rocyt e sedim entat ion rate by weste rgren metho d lab interpretati on Normal Not Available Not Available 02/15 12:42:56 07/11/19 25 07/10/2024 CBC w/ auto diff WBC, auto, blood 8.4 text: 4.0 - 10.7 x10e9/ L Not Available Not Available 03/05/2025 12:42:55 07/11/19 25 07/10/2024 CBC w/ auto diff RBC count, blood 4.68 text: 3.90 - 5.20 x10e12 /L Not Available Not Available 03/05/2025 12:42:55 07/11/19 25 07/10/2024 CBC w/ auto diff hemoglobin (Hb), blood 14.6 g/dL low: 11.9g/ dLhigh : 15.8g/ dL Not Available Not Available 03/05/2025 12:42:55 07/11/19 25 07/10/2024 CBC w/ auto diff hematocrit, automated count, blood 43.6 % low: 34.8%h igh: 46.1% Not Available Not Available 03/05/2025 12:42:55 07/11/19 25 07/10/2024 CBC w/ auto diff MCV, blood 93.2 fL low: 80fLhi gh: 98fL Not Available Not Available 03/05/2025 12:42:55 07/11/19 25 07/10/2024 CBC w/ auto diff MCH, qn, automated (obs) 31.2 pg low: 26.7pg high: 33.6pg Not Available Not Available 03/05/2025 12:42:55 07/11/19 25 07/10/2024 CBC w/ auto diff MCHC, qn, automated (obs) 33.5 g/dL low: 31.7g/ dLhigh : 36.3g/ dL Not Available Not Available 03/05/2025 12:42:55 07/11/19 25 07/10/2024 CBC w/ auto diff erythrocyte distribution width, ratio, automated (obs) 12.6 % low: 11.3%h igh: 14.8% Not Available Not Available 03/05/2025 12:42:55 07/11/19 25 07/10/2024 CBC w/ auto diff platelets, auto, blood 295 text: 150 - 420 x10e9/ L Not Available Not Available 03/05/2025 12:42:55 07/11/19 25 07/10/2024 CBC w/ auto diff platelet mean volume, qn, automated, blood (obs) 10.1 fL low: 7.8fLh igh: 11.4fL Not Available Not Available 03/05/2025 12:42:55 07/11/19 25 07/10/2024 CBC w/ auto diff neutrophils/ 100 leukocytes, automated, blood (obs) 67 % low: 41%hig h: 74% Not Available Not Available 03/05/2025 12:42:55 07/11/19 25 07/10/2024 CBC w/ auto diff lymphocytes/ 100 leukocytes, automated, blood (obs) 22.2 % low: 17%hig h: 47% Not Available Not Available 03/05/2025 12:42:55 07/11/19 25 07/10/2024 CBC w/ auto diff monocytes/10 0 leukocytes, automated, blood (obs) 7.9 % low: 3%high : 11% Not Available Not Available 03/05/2025 12:42:55 07/11/19 25 07/10/2024 CBC w/ auto diff eosinophils/ 100 leukocytes, automated, blood (obs) 2 % low: 0%high : 7% Not Available Not Available 03/05/2025 12:42:55 07/11/19 25 07/10/2024 CBC w/ auto diff basophils/10 0 leukocytes, automated, blood (obs) 0.7 % low: 0%high : 1.6% Not Available Not Available 03/05/2025 12:42:55 07/11/19 25 07/10/2024 CBC w/ auto diff immature granulocytes /100 leukocytes, automated, blood (obs) 0.2 % low: 0%high : 1% Not Available Not Available 03/05/2025 12:42:55 07/11/19 25 07/10/2024 CBC w/ auto diff neutrophil count, absolute (anc), blood (obs) 5.59 text: 1.60 - 7.50 x10e9/ L Not Available Not Available 03/05/2025 12:42:55 07/11/19 25 07/10/2024 CBC w/ auto diff lymphocytes, quantitative , blood, automated count (obs) 1.86 text: 1.00 - 4.40 x10e9/ L Not Available Not Available 03/05/2025 12:42:55 07/11/19 25 07/10/2024 CBC w/ auto diff monocytes, count, automated, blood (obs) 0.66 text: 0.15 - 1.00 x10e9/ L Not Available Not Available 03/05/2025 12:42:55 07/11/19 25 07/10/2024 CBC w/ auto diff eosinophils, quant, blood 0.17 text: 0.00 - 0.60 x10e9/ L Not Available Not Available 03/05/2025 12:42:55 07/11/19 25 07/10/2024 CBC w/ auto diff basophils, quant, auto, blood (obs) 0.06 text: 0.00 - 0.13 x10e9/ L Not Available Not Available 03/05/2025 12:42:55 07/11/19 25 07/10/2024 CBC w/ auto diff lab interpretati on Normal Not Available Not Available 02/15 12:42:55 07/11/19 25 07/10/2024 hepat itis C Ab, serum hepatitis C Ab, qual, ia, serum or plasma Non-re active text: non-re active Hepat itis C Antib osito scree n indic ates no serol ogic evide nce of past or curre nt infec tion with Hepat itis C Virus . Patie nts with unexp kinza d liver disea se who are immun ocomp romis ed or suspe cted of havin g acute Hepat itis C infec tion may benef it from Nucle ic Acid Test (TITUS) for Hepat itis C Viral RNA to confi rm Hepat itis C statu s. Not Available Not Available 03/05/2025 12:41:42 07/11/19 25 07/10/2024 hepat itis C Ab, serum lab interpretati on Normal Not Available Not Available 02/15 12:41:42 Result Notes None recorded. Medical Equipment None Reported. Allergies Allergen ID Allergen Name Allergen Category Reaction Reaction Severity Criticality Documentation Date Start Date Code Code System Note Provider Name and Address Organization Details Recorded Time 798718 hydroxych loroquine medicatio n dyspnea Not available high 03/05/20252020 5521 RxNorm unrec ogniz ed react ion (text : Urtic aria, code: 79922 001) (from exter nal sourc e) Not Available [place] - External Data Service - prod 12:41:42 089075 acetiamin e Not available rash Not available Not available 03/05/20252020 22546 0 RxNorm Not Available [place] [facility] External Data Service - prod 12:42:48 Medications Name Sig Start Date Stop Date Status Note LastModified by Organization Details LastModified Time Skyrizi 150 mg/mL subcutaneous pen injector Inject by subcutaneou s route. active Not Available Not Available No t Available Vitals Date Recorded Body height Body mass index (BMI) Body weight Body temperature Oxygen saturation Heart rate Respiratory rate Systolic And Diastolic Provider Name and Address Organization Details Last Updated DateTime 177.8 cm 26.5 kg/m2 09446.4 5 g 98.6 [degF] 98 % 68 /min 16 /min 119/72 mm[Hg] Zahra Deluna [place] - [facility] 4 15:25:23 Social History Question Answer Notes LastModified by Organizat [employer] Details LastModified Time Tobacco Smoking Status Never Smoker [facility] 10/17/2023 15:23:50 What Is Your Level Of Caffeine Consumption? Moderate Information not available 10/17/2023 What Was The Date Of Your Most Recent Tobacco Screening? 10/17/2023 Information not available 10/17/2023 What Is Your Relationship Status? Single Information not available 10/17/2023 Are You Sexually Active? Yes Information not available 10/17/2023 Has Tobacco Cessation Counseling Been Provided? No Information not available 10/17/2023 Sex: Female Functional Status Question Answer Note LastModified by Organizat ion Details LastModified Time Do you use any illicit or recreational drugs? No Information not available 10/17/2023 What is your level of alcohol consumption? Occasional Information not available 10/17/2023 Mental Status None recorded. Family History Nothing Reported. Medical History No medical history recorded. Gynecological History Statement/Question Response Current Control Method Hysterectom y Obstetrics History GPAL:G 0 P 0 0 0 0 Past Encounters Encounter ID Performer Location Encounter Start Date Encounter Closed Date Diagnosis/Indication Diagnosis SNOMED-CT Code Diagnosis ICD10 Code Diagnosis IMO Codes Diagnosis Note [id number] MD Chris Griffith [address] [facility] [place] [address] 10/17/2023 15:16:57 11/20/2023 13:20:26 Venereal disease screening 864976210 Z11.3 -Patient agreeable to vaginal and oral STD screening, HIV, syphillis, and hepatitis b and c screening. -Patient advised if she does test positive for an STD she will need treatment and then follow up in 3 months for test of cure.-COSMETIC ACCOUNT COORDINATOR discussed importance of safe sex practices including condom use to prevent STDs and unplanned and to limit number of sexual partners to reduce exposure to STDs.-COSMETIC ACCOUNT COORDINATOR provided safer sex care instructio alvaro. Health Concerns Section Related Observation LastModified by Organization Detai ls LastModified Time None Recorded Concern Status LastModified by Organization Details LastModified Time None Recorded Advance Directives Directive None Recorded Payers Insurance Date Sequence Insurance Name Policy Number Policy Fofana Covered Member ID Fofana Member ID Guarantor Name 11/20/2023 1 [place] [id number] Kristan Craven [id number] Kristan Craven 11/20/2023 2 [place] [facility] Kristan Craven [id number] Kristan Craven Notes Date Note Type Note Provider Name and Address Organization Details Recorded Time 10/17/2023 text/html Patient presents to the clinic for acute complaint of STD screening. [facility] for primary care. STD-Patient reports she was on antibiotics and she developed symptoms of a yeast infection. Patient reports her condom broke as well, so she is unsure what is causing her symptoms.-Patient reports she was having vaginal discharge until she completed monistat treatment, which resolved her symptoms. Patient finished monistat treatment last week.-Patient denies having any vaginal odor-Patient reports experiencing symptoms of pelvic pain, urinary symptoms, vaginal itching.-Patient reports she has had 13 sexual partners-Patient reports she usually wears condoms for protection.-Halima t reports she is having vaginal and oral sex.-Patient reports history of hysterectomy.-Edith ent reports history of herpes. Patient reports she is not having an acute flare currently. IRLANDA KO- Attn: Accounting[address] [place], [address], [facility] 11/19/2023 17:29:25 OBGyn Episode No OBEpisode recorded.
--- OUTSIDE RECORDS SUMMARY | 2025-04-07 10:35 | XMS_ITS | Clinical Summary ---
Author Organization [facility] [employer] [facility] lin Address [address] [facility] [place] [address] Care Team Providers Care Stonework Tracer Name Role Phone Unavailable Primary Care Provider Unavailabl e Social History Tobacco Use Types Packs/Day Years Used Date Smoking Tobacco: Never Assessed Comments Unknown Sex and Gender Information Value Date Recorded Sex Assigned at Not on file Legal Sex Female 1:25 PM EST Gender Identity Not on file Sexual Orientation Not on file Plan of Treatment Not on file Medical Devices Not on file Insurance [facility] [employer]
== END 2025-04-07 09:55 | disposition home or self-care (01) ==
PROVIDERS: Emergency Provider Nurse Practitioner Family
DX: J32.9 Chronic sinusitis, unspecified (principal); J40 Bronchitis, not specified as acute or chronic
CPT/HCPCS: 99213; G0463